=== PATIENT | female | born 2005 | race Caucasian/White ===

== ENCOUNTER 2024-06-28 22:31 | Observation (INO) | payer OTHER ==
[~2024-06-28] VITALS: Ht 167.6 cm; Wt 102.0 kg
[2024-06-28 22:45] VITALS: BP 134/78
[2024-06-28] MEDS ORDERED: Lactated Ringer's 1,000 ML IV SCH (23:55)
[2024-06-29 00:13] VITALS: BP 127/65
[2024-06-29] MEDS ORDERED: Acetaminophen 500 MG Tab PO PRN (02:00)
[2024-06-29 03:46] VITALS: BP 137/74
== END 2024-06-29 07:45 | disposition home or self-care (01) ==
LOC: OBS 22:31 → BC 22:34 → OBS 22:45 → BC 22:46 → OBS 06-29 02:00 → BC 06-29 02:00 → OBS 06-29 07:45 → BC 06-29 07:45
PROVIDERS: ADMIT Advanced Practice Midwife
DX: O36.8130 Decreased fetal movements, third trimester, not applicable or unspecified (principal); Z3A.36 36 weeks gestation of pregnancy
CPT/HCPCS: 59025; 81003; 96360; 96361; 99213; J7120

== ENCOUNTER → 2024-06-29 | Outpatient (CLI) | payer OTHER | LOC: LAB SHORT 16:39 → LAB 16:39 | DX: O09.93 Supervision of high risk pregnancy, unspecified, third trimester (principal) | CPT/HCPCS: 87081; 87150 ==

== ENCOUNTER 2024-07-26 19:09 | Inpatient (IN) | payer OTHER ==
[~2024-07-26] VITALS: Ht 167.6 cm; Wt 108.0 kg
[2024-07-26 19:25] VITALS: BP 127/71
[2024-07-26] MEDS ORDERED: Misoprostol 200 MCG Tab BC PRN (19:35)
[2024-07-26] MEDS ORDERED: Carboprost Tromethamine 250 MCG/ML 1ML Amp IM PRN (19:35)
[2024-07-26] MEDS ORDERED: Oxytocin 10 Unit / ML Vial IM PRN (19:35)
[2024-07-26] MEDS ORDERED: Methylergonovine Maleate 0.2MG / ML 1ML Amp IM PRN (19:35)
[2024-07-26] MEDS ORDERED: Lactated Ringer's 1,000 ML IV PRN (19:35)
[2024-07-26] MEDS ORDERED: OXYTOCIN/RINGER'S LACTATE 500 ML IV PRN (19:35)
[2024-07-26] MEDS ORDERED: Misoprostol 200 MCG Tab PR PRN (19:35)
[2024-07-26] MEDS ORDERED: Tranexamic Acid 100 ML IV SCH (19:35)
[2024-07-26] MEDS ORDERED: Ondansetron HCl 2 MG / ML 2ML Vial IV PRN (19:35)
[2024-07-26] MEDS ORDERED: Acetaminophen 500 MG Tab PO PRN (19:35)
[2024-07-26] MEDS ORDERED: Calcium Carbonate 500 MG Tab Chew PO PRN (19:40)
[2024-07-26 19:52] LABS: BASOPHILS ABSOLUTE AUTO 0.01 K/mm3 (0.00-0.23); BASOPHILS PERCENT AUTO 0 % (0-2); EOSINOPHILS ABSOLUTE AUTO 0.31 K/mm3 (0.00-0.68); EOSINOPHILS PERCENT AUTO 4 % (0-6); Hematocrit 33.2 % (33.0-51.0); Hemoglobin 11.2 g/dL (11.5-16.0); IMMATURE GRAN ABSOLUTE AUTO 0.03 K/mm3 (0.00-0.10); IMMATURE GRAN PERCENT AUTO 0 % (0-1); LYMPHOCYTES PERCENT AUTO 18 % (21-46); MONOCYTES ABSOLUTE AUTO 0.71 K/mm3 (0.16-1.47); MONOCYTES PERCENT AUTO 8 % (4-13); Mean Corpuscular HGB 25.9 pg (26.0-34.0); Mean Corpuscular HGB Conc 33.7 g/dL (31.5-36.5); Mean Corpuscular Volume 77 fL (80-100); Mean Platelet Volume 11.1 fL (9.1-12.4); NEUTROPHILS ABSOLUTE AUTO 6.06 K/mm3 (1.96-9.15); NEUTROPHILS PERCENT AUTO 70 % (41-73); Platelet Count 291 K/mm3 (150-400); RDW Coefficient Variation 13.5 % (11.7-14.2); RDW Standard Deviation 37.3 fL (35.1-46.3); Red Blood Cell Count 4.32 M/mm3 (3.80-5.20); White Blood Cell Count 8.72 K/mm3 (4.00-11.30)
[2024-07-26] MEDS ORDERED: Misoprostol 200 MCG Tab PO ONE (21:54)
[2024-07-26 22:28] VITALS: BP 144/85
[2024-07-26 23:35] VITALS: BP 142/91
[2024-07-27] VITALS (20 sets, daily range): BP systolic 135–172; BP diastolic 65–95
[2024-07-27] MEDS ORDERED: FentaNYL Citrate 50 MCG/ML 2 ML Injection IV PRN (03:00)
[2024-07-27] MEDS ORDERED: OXYTOCIN/RINGER'S LACTATE 500 ML IV SCH ×2 (03:55→08:55)
--- NOTE | 2024-07-27 07:25 | NUR ---
EFW IS 7# [address]OZ PER DR POWERS.
[2024-07-27] MEDS ORDERED: Lactated Ringer's 1,000 ML IV ONE (12:32)
[2024-07-27] MEDS ORDERED: Lactated Ringer's 1,000 ML IV SCH ×4 (12:40→19:35)
[2024-07-27] MEDS ORDERED: FentaNYL 2mcg/ml-Bup 0.1% Epd 250 ML EPI PRN (16:10)
[2024-07-27] MEDS ORDERED: ePHEDrine Sulfate 50 MG/ML 1ML Injection XX PRN (16:10)
[2024-07-27] MEDS ORDERED: Misoprostol 200 MCG Tab PR PRN (18:20)
[2024-07-27] MEDS ORDERED: FLU VACC TS2024-25(6MOS UP)/PF 45 MCG/0.5 ML SYRINGE IM ONE (18:20)
[2024-07-27] MEDS ORDERED: Acetaminophen 500 MG Tab PO PRN (18:20)
[2024-07-27] MEDS ORDERED: Benzocaine Topical Anesthetic Spray 60GM TOP PRN (18:20)
[2024-07-27] MEDS ORDERED: Ibuprofen 400 MG Tab PO PRN (18:20)
[2024-07-27] MEDS ORDERED: Witch Hazel/Glycerin PADS TOP PRN (18:20)
[2024-07-27] MEDS ORDERED: OXYTOCIN/RINGER'S LACTATE 500 ML IV PRN (18:20)
[2024-07-27] MEDS ORDERED: Lanolin Cream TOP PRN (18:20)
[2024-07-27] MEDS ORDERED: Methylergonovine Maleate 0.2MG / ML 1ML Amp IM PRN (18:25)
[2024-07-27] MEDS ORDERED: Ketorolac Tromethamine 30mg Vial IV PRN (18:25)
[2024-07-27] MEDS ORDERED: Measles/Mumps/Rubella Vaccine 0.5 ML Vial SC ONE (18:25)
[2024-07-28 00:51] VITALS: BP 142/68
[2024-07-28 04:14] VITALS: BP 123/66
[2024-07-28 08:22] VITALS: BP 136/65
[2024-07-28] MEDS ORDERED: Prenatal Vit/FE Fumarate/FA 1 Tab PO SCH (09:00)
[2024-07-28 12:12] VITALS: BP 118/59
[2024-07-28] MEDS ORDERED: IBUP800 PO (14:13)
[2024-07-28 17:20] VITALS: BP 131/69
--- NOTE | 2024-07-28 17:30 | NUR ---
DISCHARGE PT READY TO DC HOME ONCE RIDE GETS HERE. VERBALIZES UNDERSTANDING OF DC INSTRUCTIONS AND FOLLOW UP APPOINTMENTS. CARING FOR SELF AND BABY INDEPENDANTLY. VSS. AFEBRILE. LOCHIA SCANT. NO QUESTIONS OR CONCERNS.
== END 2024-07-28 18:40 | disposition home or self-care (01) | DRG 807 ==
LOC: OBS 19:09 → BC 19:11 → OBS 19:17 → BC 19:57
PROVIDERS: ADMIT Advanced Practice Midwife
PROC: 10E0XZZ Delivery of Products of Conception, External Approach (ICD-10-PCS; principal; 2024-07-27)
PROC: 0HQ9XZZ Repair Perineum Skin, External Approach (ICD-10-PCS; 2024-07-27)
DX: O48.0 Post-term pregnancy (principal); Z37.0 Single live birth; O99.334 Smoking (tobacco) complicating childbirth; Z3A.40 40 weeks gestation of pregnancy; F17.210 Nicotine dependence, cigarettes, uncomplicated; O70.0 First degree perineal laceration during delivery; O99.214 Obesity complicating childbirth; Z90.89 Acquired absence of other organs; Z98.890 Other specified postprocedural states
CPT/HCPCS: 36415; 59200; 85025; 86850; 86900; 86901; A9270; J1885; J2210; J2590; J3010; J7120